=== PATIENT | female | born 1960 | race Caucasian/White ===

== ENCOUNTER → 2016-07-30 | Outpatient (CLI) | payer BC ==
[~2016-07-30] MED LIST: ASPIRIN PO; CLONIDINE PO; CRESTOR PO; HCTZ PO; INSULIN SUBQ; LANTUS100 U/ML SUBQ; METFORMIN PO; PLETAL50 MG PO; ZOLOFT PO
--- NOTE | ~2016-07-30 | US135 ---
[facility] A Service of [facility] & [facility] RADIOLOGY TEXT RESULTS PATIENT: BRIELLE DIXON LOCATION: CNIV : 60 UNIT #: [id number] AGE: [address]: Kali Sommers MD SEX: F ORDER DR: [id number] [facility] [address] [place], [place] [address] [id number] O MR#: [id number] Acc #: [id number] NAME: BRIELLE DIXON : 1960 SEX: F STUDY DATE/TIME: 07/30/2016 11:20 UNIT: CNIV ROOM: STUDY DESCRIPTION: US U/L Ext Art Study Comp Ilya Attending Physician: Kali Sommers M.D. Referring Physician: Kali Sommers M.D. Ordering Physician: Kali Sommers M.D. Primary Care Physician: Tracee Mark M.D. MEDICAL IMAGING REPORT This report is preliminary unless electronic signature is present EXAM Bilateral lower extremity arterial studies HISTORY Peripheral vascular disease. FINDINGS Pulse volume recordings are normal at the thigh levels bilaterally and dampened at the calf and the ankle levels bilaterally. Doppler velocity waveforms are monophasic at the ankle levels bilaterally in the dorsalis pedis and posterior tibial. Right brachial pressure is 163 and left brachial pressure is 155 mmHg. On the right side, high-thigh pressure is 145, low-thigh 131, calf pressure 92, posterior tibial 84, dorsalis pedis 84, great toe 64 for a right gppjb-pg-badcprwz index of 0.52. On the left side, high-thigh is 84, low-thigh is 80, calf pressure 64, dorsalis pedis 69, posterior tibial 66, great toe 51, for a left hmlli-up-hnjqprrv index of 0.42. IMPRESSION Iffiztjp-wn-olkrgi peripheral vascular disease is seen in the lower extremities bilaterally with JOSE RAUL 0.52 on the right and 0.42 on the left. Segmental pressures indicate predominantly aortoiliac disease on the right side, including tibial arterial disease. On the left side, aortoiliac and popliteal and tibial disease is seen.. Dictated by... [facility] A Service of [facility] & [facility] RADIOLOGY TEXT RESULTS PATIENT: BRIELLE DIXON LOCATION: CNIV : 60 UNIT #: [id number] AGE: [address]: Kali Sommers MD SEX: F ORDER DR: Kali Sommers M.D. THIS IS AN ELECTRONICALLY VERIFIED REPORT Kali Sommers M.D. at 08/06/2016 8:36 AM /chetna TD: 07/30/2016 15:00 JOB #: [id number] MEDICAL IMAGING REPORT Page 1 of 1 COPY
== END | disposition home or self-care (01) ==
LOC: CNIV 10:58
DX: I73.9 Peripheral vascular disease, unspecified (principal)
CPT/HCPCS: 93923